=== PATIENT | female | born 1975 | race African-American/Black ===

== ENCOUNTER → 2016-12-29 | Emergency (ER) | payer OTHER ==
[~2016-12-29] VITALS: Ht 165.1 cm; Wt 54.4 kg
[~2016-12-29] MED LIST: ACETAMINOPHEN500 M3 ORAL; AMOXICILLIN500 MG ORAL; BACTRIM DS TAB1 EAC1 ORAL; CEPHALEXIN500 MG ORAL; GENTAMICIN SULF15 G2 TOPIC; HYDROCODON-ACE1 EA15 ORAL; IBUPROFEN600 MG ORAL; METROGEL-VAGINA70 G1 VAGIN; NITROFURANTOIN100 M2 ORAL; NKM; NORCO 5-325 TA1 EACH ORAL; Norco 5mg/325mg tab ORAL ONE; TYLENOL325 MG ORAL; vitamin
--- NOTE | 2016-12-29 04:22 | Emergency Room Report ---
History of Present Illness General Chief Complaint: Toothache Source: Patient Present Illness HPI Is a 41-year-old female with no respiratory issue. She presents with chief complaint of right lower jaw pain secondary to dental pain. Onset for 2 days. Pain is 10 out of 10. No swelling. No drainage. Has no dentist. Allergies: Coded Allergies: No Known Allergies (Unverified , 02/01/13) Patient History Past Medical History: none, see triage record, old chart reviewed Past Surgical History: none Pertinent Family History: none Social History: Reports: drug use, smoking Last Menstrual Period: last month Now: No Immunizations: other Reviewed Nursing Documentation: PMH: Agreed, PSxH: Agreed Nursing Documentation-PMH Hx Cerebrovascular Accident: No - "BRAIN INJURY" Review of Systems Eye: Denies: blurred vision, eye pain ENT: Denies: ear pain, nose congestion, throat swelling Respiratory: Denies: cough, shortness of breath Cardiovascular: Denies: chest pain, palpitations Gastrointestinal: Denies: abdominal pain, diarrhea, nausea, vomiting Musculoskeletal: Denies: back pain, joint pain Skin: Denies: rash Neurological: Denies: headache, numbness Endocrine: Denies: increased thirst, increased urine Hematologic/Lymphatic: Denies: easy bruising All Other Systems: negative except mentioned in HPI Physical Exam Vital Signs Date Time Temp Pulse Resp B/P Pulse Ox O2 Delivery O2 Flow Rate FiO2 12/29/16 04:06 98.2 96 18 131/76 97 Room Air vitals normal Sp02 EP Interpretation: reviewed, normal General Appearance: well appearing, no apparent distress, alert Head: normocephalic, atraumatic Eyes: bilateral eye EOMI, bilateral eye PERRL ENT: hearing grossly normal, normal pharynx, other - Patient has percussive tenderness over the right lower wisdom tooth. No abscess. No trismus. Neck: full range of motion, supple, no meningismus Respiratory: chest non-tender, lungs clear, normal breath sounds Cardiovascular #1: regular rate, rhythm, no murmur Gastrointestinal: normal bowel sounds, non tender, no mass, no organomegaly, no bruit, non-distended Musculoskeletal: back normal, gait/station normal, normal range of motion Psychiatric: mood/affect normal Skin: warm/dry Procedures Additional Procedure Procedure Narrative Procedure: Dental block. Indication: Dental pain. Discussion: I injected the tooth with 1% lidocaine without epinephrine. A total of 3 mL injected using 27-gauge needle. Patient tolerated procedure without any problem. Patient has good pain control. Medical Decision Making Diagnostic Impression: Primary Impression: Dental abscess ER Course Patient with toothache. Most likely infection. No abscess to I&D. We'll discharge home. Last Vital Signs Date Time Temp Pulse Resp B/P Pulse Ox O2 Delivery O2 Flow Rate FiO2 12/29/16 04:06 98.2 96 18 131/76 97 Room Air Status: improved Disposition: HOME, SELF-CARE Condition: Stable Scripts Hydrocodone/Acetaminophen 5-325* (HYDROCODONE/ACETAMINOPHEN 5-325*) 1 Each Tablet 1 TAB ORAL Q6H Y for For Pain, #15 TAB 0 Refills Prov: TERESITA BARDALES M.D. 12/29/16 Amoxicillin* (AMOXIL*) 500 Mg Capsule 500 MG ORAL THREE TIMES A DAY, #21 CAP Prov: TERESITA BARDALES M.D. 12/29/16 Patient Instructions: Dental Pain Additional Instructions: See dentist FEST[facility]. Return for fever, facial swelling or any concern. TERESITA BARDALES M.D. Dec 29, 2016 04:22
[2016-12-29 04:24] VITALS: BP 131/76
[2016-12-29 04:30] VITALS: BP 131/76
== END | disposition home or self-care (01) ==
LOC: EMR 04:15
DX: K04.7 Periapical abscess without sinus (principal); F17.200 Nicotine dependence, unspecified, uncomplicated
CPT/HCPCS: 99284

== ENCOUNTER 2017-01-20 10:59 | Emergency (ER) | payer MEDICAID, OTHER ==
[~2017-01-20] VITALS: Ht 165.1 cm; Wt 54.4 kg
[~2017-01-20 10:59] MED LIST changes: -METROGEL-VAGINA70 G1 VAGIN; -Norco 5mg/325mg tab ORAL ONE
[2017-01-20 11:24] VITALS: BP 125/80
[2017-01-20 12:16] LABS: APPEARANCE,URINE CLEAR; KETONES,URINE NEGATIVE (NEGATIVE); LEUKOCYTE ESTERASE ,URINE NEGATIVE (NEGATIVE); NITRITE,URINE NEGATIVE (NEGATIVE); PH,URINE 6 (4.5-8.0); PROTEIN,URINE NEGATIVE (NEGATIVE); UROBILINOGEN,URINE NORMAL MG/DL (0.0-1.0)
[2017-01-20] MEDS ORDERED: METROGEL-VAGINA70 G1 VAGIN (13:10)
[2017-01-20 13:19] VITALS: BP 119/76
--- NOTE | 2017-01-21 17:06 | Emergency Room Report ---
History of Present Illness General Chief Complaint: Abdominal Pain Source: Patient Present Illness HPI Patient is a 41-year-old female who presented after having had generalized abdominal pain. Patient had gradual onset of symptoms. The patient was noted to have been having increased discharge and rash to her perineal area. Patient denied any fever. She had not been vomiting. Patient has not been having any hematemesis or bloody stools Allergies: Coded Allergies: No Known Allergies (Unverified , 02/01/13) Patient History Last Menstrual Period: 11/29/16 Now: No Reviewed Nursing Documentation: PMH: Agreed, PSxH: Agreed Nursing Documentation-PMH Past Medical History: No Stated History Hx Cerebrovascular Accident: No - "BRAIN INJURY" Review of Systems All Other Systems: negative except mentioned in HPI Physical Exam Vital Signs Date Time Temp Pulse Resp B/P Pulse Ox O2 Delivery O2 Flow Rate FiO2 01/20/17 11:12 98.4 93 18 125/80 96 Room Air Sp02 EP Interpretation: reviewed, normal General Appearance: normal inspection, well appearing, no apparent distress, alert, GCS 15 Head: atraumatic ENT: normal ENT inspection, hearing grossly normal, normal voice Neck: normal inspection, full range of motion, supple, no bony tend Respiratory: normal inspection, lungs clear, normal breath sounds, no respiratory distress, no retraction, no wheezing Cardiovascular #1: regular rate, rhythm, no edema Gastrointestinal: normal inspection, normal bowel sounds, non tender, soft, no guarding, no hernia Genitourinary: no CVA tenderness, other - vaginal discharge Musculoskeletal: normal inspection, back normal, normal range of motion Neurologic: normal inspection, alert, responsive, speech normal Psychiatric: normal inspection, judgement/insight normal, mood/affect normal Skin: normal inspection, normal color, no rash Medical Decision Making Diagnostic Impression: Primary Impression: Abdominal pain Additional Impression: Vaginitis ER Course Patient presented for abdominal pain. Differential diagnoses included ischemic bowel, appendicitis, perforated viscus, abdominal aortic aneurysm, inferior myocardial infarction, viral gastroenteritis Patient's benign exam and does not appear to require any further imaging or laboratory testing at this time. The patient was given prescription for MetroGel for appears to be a vaginitis . The patient is advised to follow up with primary care doctor in 1-2 days. Patient is advised to return if any worsening condition or if any changes in status that are concerning. Labs Test 01/20/17 11:40 Urine Color Pale yellow Urine Appearance Clear Urine pH 6 (4.5-8.0) Urine Specific [place] 1.010 (1.005-1.035) Urine Protein Negative (NEGATIVE) Urine Glucose (UA) Negative (NEGATIVE) Urine Ketones Negative (NEGATIVE) Urine Occult Blood Negative (NEGATIVE) Urine Nitrite Negative (NEGATIVE) Urine Bilirubin Negative (NEGATIVE) Urine Urobilinogen Normal MG/DL (0.0-1.0) Urine Leukocyte Esterase Negative (NEGATIVE) Urine HCG, Qualitative Negative Last Vital Signs Date Time Temp Pulse Resp B/P Pulse Ox O2 Delivery O2 Flow Rate FiO2 01/20/17 13:19 98.4 86 18 119/76 99 Room Air Status: improved Disposition: HOME, SELF-CARE Condition: Stable Scripts Metronidazole* (METROGEL-VAGINAL*) 70 Gm Gel.w.appl 1 APPL VAGIN EVERY 12 HOURS, #70 GM Prov: Giovanny Monte 01/20/17 Patient Instructions: Abdominal Pain, Adult Giovanny Monte Jan 21, 2017 17:06
== END 2017-01-20 13:29 | disposition home or self-care (01) ==
LOC: EMR 12:00
DX: R10.9 Unspecified abdominal pain (principal); N76.0 Acute vaginitis
CPT/HCPCS: 81003; 81025; 99283

== ENCOUNTER 2017-06-29 20:39 | Emergency (ER) | payer OTHER ==
[~2017-06-29] VITALS: Ht 165.1 cm; Wt 54.4 kg
[~2017-06-29 20:39] MED LIST changes: +METROGEL-VAGINA70 G1 VAGIN
[2017-06-29 21:15] VITALS: BP 133/85
[2017-06-29] MEDS ORDERED: HYDROCODON-ACE1 EA15 ORAL (21:31)
[2017-06-29] MEDS ORDERED: AMOXICILLIN500 MG ORAL (21:31)
[2017-06-29] MEDS ORDERED: IBUPROFEN600 MG ORAL (21:31)
--- NOTE | 2017-06-29 21:31 | Emergency Room Report ---
History of Present Illness General Chief Complaint: Toothache Source: Patient Present Illness HPI Is a 41-year-old female with no significant past medical history. She presents with chief complaint of dental pain. She has poor dentition and said that her wisdom teeth broke off. Now complaining of pain to the right lower jaw. Onset for last week. She said she saw a dentist and has an appointment with a specialist in a week. No nausea no vomiting. Pain is 8/10. Has not take anything for this. No swelling. She's been here for similar complaint in the past. Allergies: Coded Allergies: No Known Allergies (Unverified , 02/01/13) Patient History Past Medical History: see triage record, old chart reviewed Past Surgical History: none Pertinent Family History: none Social History: Reports: smoking Last Menstrual Period: LAST WEEK Now: No Immunizations: other Reviewed Nursing Documentation: PMH: Agreed, PSxH: Agreed Nursing Documentation-PMH Past Medical History: No Stated History Hx Cerebrovascular Accident: No - "BRAIN INJURY" Review of Systems Eye: Denies: eye pain, blurred vision ENT: Denies: ear pain, nose congestion, throat swelling Respiratory: Denies: cough, shortness of breath Cardiovascular: Denies: chest pain, palpitations Gastrointestinal: Denies: abdominal pain, diarrhea, nausea, vomiting Musculoskeletal: Denies: back pain, joint pain Skin: Denies: rash Neurological: Denies: headache, numbness Endocrine: Denies: increased thirst, increased urine Hematologic/Lymphatic: Denies: easy bruising All Other Systems: negative except mentioned in HPI Physical Exam Vital Signs Date Time Temp Pulse Resp B/P (MAP) Pulse Ox O2 Delivery O2 Flow Rate FiO2 06/29/17 21:08 97.5 80 20 133/85 98 Room Air vitals unremark Sp02 EP Interpretation: reviewed, normal General Appearance: well appearing, no apparent distress, alert Head: normocephalic, atraumatic Eyes: bilateral eye PERRL, bilateral eye EOMI ENT: hearing grossly normal, normal pharynx, other - Poor dentition. Right lower jaw showed decay of 2nd and 3rd molars. Neck: full range of motion, supple, no meningismus Respiratory: chest non-tender, lungs clear, normal breath sounds Cardiovascular #1: regular rate, rhythm, no murmur Gastrointestinal: normal bowel sounds, non tender, no mass, no organomegaly, no bruit, non-distended Musculoskeletal: back normal, gait/station normal, normal range of motion Psychiatric: mood/affect normal Skin: warm/dry Medical Decision Making Diagnostic Impression: Primary Impression: Toothache Additional Impression: Dental abscess ER Course Pt with dental pain. no e/o abscess that can be I&D. will dc home. Last Vital Signs Date Time Temp Pulse Resp B/P (MAP) Pulse Ox O2 Delivery O2 Flow Rate FiO2 06/29/17 21:15 20 133/85 98 Room Air 06/29/17 21:08 97.5 80 Status: improved Disposition: HOME, SELF-CARE Condition: Stable Scripts Ibuprofen* (MOTRIN*) 600 Mg Tablet 600 MG ORAL THREE TIMES A DAY, #30 TAB 0 Refills Prov: TERESITA BARDALES M.D. 06/29/17 Hydrocodone/Acetaminophen 5-325* (HYDROCODONE/ACETAMINOPHEN 5-325*) 1 Each Tablet 1 TAB ORAL Q6H Y for For Pain, #5 TAB 0 Refills Prov: TERESITA BARDALES M.D. 06/29/17 Amoxicillin* (AMOXIL*) 500 Mg Capsule 500 MG ORAL THREE TIMES A DAY, #21 CAP Prov: TERESITA BARDALES M.D. 06/29/17 Referrals: [facility],REFERR[facility] (PCP) Patient Instructions: Dental Pain Additional Instructions: Followup with your dentist as scheduled. Return if symptom worsen. TERESITA BARDALES M.D. Jun 29, 2017 21:31
[2017-06-29 21:55] VITALS: BP 128/81
== END 2017-06-29 21:57 | disposition home or self-care (01) ==
LOC: EMR 21:11
DX: K04.7 Periapical abscess without sinus (principal); F17.200 Nicotine dependence, unspecified, uncomplicated
CPT/HCPCS: 99284

== ENCOUNTER 2017-08-20 20:37 | Emergency (ER) | payer OTHER ==
[~2017-08-20] VITALS: Ht 165.1 cm; Wt 54.4 kg
[2017-08-20 20:50] VITALS: BP 118/78
[2017-08-20] MEDS ORDERED: PERCOCET 5-3251 EACH ORAL (21:35)
[2017-08-20 21:46] VITALS: BP 118/78
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
== END 2017-08-20 21:50 | disposition home or self-care (01) ==
LOC: EMR 21:48
DX: M25.551 Pain in right hip (principal); V89.2XXA Person injured in unspecified motor-vehicle accident, traffic, initial encounter; Y93.9 Activity, unspecified; Y99.9 Unspecified external cause status
CPT/HCPCS: 99283

== ENCOUNTER 2018-02-25 23:29 | Emergency (ER) | payer OTHER ==
[~2018-02-25 23:29] MED LIST changes: +PERCOCET 5-3251 EACH ORAL
--- NOTE | 2018-02-25 23:58 | Emergency Room Report ---
History of Present Illness General Chief Complaint: To Be Triaged Present Illness HPI This a 42-year-old female with history of chronic pain. She presents with chief complaint of back pain. When she was called back by triage nurse, she never showed up. Patient left without being triaged. I did not see the patient. Allergies: Coded Allergies: No Known Allergies (Unverified , 02/01/13) Nursing Documentation-PMH Hx Cerebrovascular Accident: No - "BRAIN INJURY" Medical Decision Making Diagnostic Impression: Primary Impression: Back pain Status: unchanged Disposition: LEFT W/OUT BEING SEEN TERESITA BARDALES M.D. February 25, 2018 23:58
== END 2018-02-25 23:54 | disposition left against medical advice (07) ==
LOC: EMR 23:54
DX: M54.9 Dorsalgia, unspecified (principal); Z53.21 Procedure and treatment not carried out due to patient leaving prior to being seen by health care provider
CPT/HCPCS: 99281

== ENCOUNTER → 2018-02-27 | Emergency (ER) | payer OTHER ==
[~2018-02-27] VITALS: Ht 165.1 cm; Wt 59.0 kg
[2018-02-27 13:24] VITALS: BP 138/97
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
== END | disposition left against medical advice (07) ==
LOC: EMR 13:45
DX: H57.11 Ocular pain, right eye (principal); Z53.21 Procedure and treatment not carried out due to patient leaving prior to being seen by health care provider
CPT/HCPCS: 99281

== ENCOUNTER 2018-03-02 23:33 | Emergency (ER) | payer OTHER ==
[~2018-03-02] VITALS: Ht 165.1 cm; Wt 56.7 kg
[2018-03-03] MEDS ORDERED: Tylenol #3 tab (300mg/30mg) PO ONE
[2018-03-03 00:20] VITALS: BP 128/78
[2018-03-03 01:30] VITALS: BP 128/90
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
== END 2018-03-03 00:35 | disposition left against medical advice (07) ==
LOC: EMR 23:53
DX: S00.83XA Contusion of other part of head, initial encounter (principal); Y04.2XXA Assault by strike against or bumped into by another person, initial encounter; Y92.9 Unspecified place or not applicable
CPT/HCPCS: 99282

== ENCOUNTER 2018-03-08 22:37 | Emergency (ER) | payer OTHER ==
[~2018-03-08] VITALS: Ht 165.1 cm; Wt 54.4 kg
[2018-03-08 23:28] VITALS: BP 127/86
[2018-03-08] MEDS ORDERED: BACTRIM DS TAB1 EAC1 ORAL (23:33)
[2018-03-08] MEDS ORDERED: CEPHALEXIN500 MG ORAL (23:33)
[2018-03-08 23:50] VITALS: BP 0/0
--- NOTE | 2018-03-09 02:50 | Emergency Room Report ---
History of Present Illness General Chief Complaint: Skin Rash/Abscess Source: Patient Present Illness HPI Patient presents with complaints of boil to the right buttock area She has felt that area for the past 7 days Denies any fevers or chills Denies any discharge Has some mild discomfort when sitting Denies any trauma Denies any discomfort with bowel movement Allergies: Coded Allergies: No Known Allergies (Unverified , 02/01/13) Patient History Past Medical History: see triage record Pertinent Family History: none Last Menstrual Period: 02/07/2018 Now: No Reviewed Nursing Documentation: PMH: Agreed; PSxH: Agreed Nursing Documentation-PMH Past Medical History: No Stated History Hx Cerebrovascular Accident: No Review of Systems All Other Systems: negative except mentioned in HPI Physical Exam Vital Signs Date Time Temp Pulse Resp B/P (MAP) Pulse Ox O2 Delivery O2 Flow Rate FiO2 03/08/18 23:16 98.2 92 16 127/86 97 Room Air 98.2 Sp02 EP Interpretation: reviewed, normal General Appearance: well appearing, no apparent distress Head: normocephalic, atraumatic Eyes: bilateral eye PERRL, bilateral eye EOMI ENT: hearing grossly normal, normal pharynx Neck: full range of motion, supple Respiratory: lungs clear, normal breath sounds Cardiovascular #1: regular rate, rhythm Rectal: other - Small pustule to the right lower buttock region, no obvious fluctuance, mild erythema Musculoskeletal: normal inspection Neurologic: alert, oriented x3 Skin: other - As above Lymphatic: no adenopathy Medical Decision Making Diagnostic Impression: Primary Impression: cellulitis Additional Impression: pustule ER Course There is a small area of infection on the right buttock area No areas for incision at this time patient will be trialed on oral antibiotics Warm soaking And return with any changes Last Vital Signs Date Time Temp Pulse Resp B/P (MAP) Pulse Ox O2 Delivery O2 Flow Rate FiO2 03/08/18 23:16 98.2 92 16 127/86 97 Room Air 98.2 Status: unchanged Disposition: HOME, SELF-CARE Condition: Stable Scripts Trimethoprim/Sulfamethoxazole 160/800* (BACTRIM DS TABLET*) 1 Each Tablet 1 TAB ORAL Q12H, #20 TAB 0 Refills Prov: Akash Soni DO 03/08/18 Cephalexin* (KEFLEX*) 500 Mg Capsule 500 MG ORAL EVERY 6 HOURS, #40 CAP Prov: Akash Soni DO 03/08/18 Referrals: [facility],REFERR[facility] (PCP) Patient Instructions: Abscess, Cellulitis, [id number] Additional Instructions: Patient is provided with the discharge instructions notified to follow up with primary doctor in the next 2-3 days otherwise return to the er with any worsening symptoms. Please note that this report is being documented using [employer] technology. This can lead to erroneous entry secondary to incorrect interpretation by the dictating instrument. Akash Soni DO March 09, 2018 02:50
== END 2018-03-08 23:50 | disposition home or self-care (01) ==
LOC: EMR 23:06
DX: L03.317 Cellulitis of buttock (principal)
CPT/HCPCS: 99284

== ENCOUNTER 2018-04-06 00:22 | Emergency (ER) | payer OTHER ==
[~2018-04-06] VITALS: Ht 165.1 cm; Wt 54.4 kg
[2018-04-06 01:34] VITALS: BP 134/86
[2018-04-06] MEDS ORDERED: IBUPROFEN600 MG ORAL (01:36)
[2018-04-06] MEDS ORDERED: OCUFLOX5 ML RIGHT EYE (01:36)
[2018-04-06] MEDS ORDERED: ROBAXIN-750750 MG PO (01:36)
[2018-04-06 01:41] VITALS: BP 134/86
--- NOTE | 2018-04-06 06:06 | Emergency Room Report ---
History of Present Illness General Chief Complaint: Pain Source: Patient Present Illness HPI 42-year-old female presents ED complaining of right eye pain. Started 2 days ago after she fell. States her eye may been irritated in the process. Also complaining of some right lower back pain. Pain is dull, 8 out of 10, nonradiating. Denies photophobia or blurry vision. Denies any other injuries. No other aggravating relieving factors. Denies any other associated symptoms Allergies: Coded Allergies: No Known Allergies (Unverified , 02/01/13) Patient History Past Medical History: none Past Surgical History: none Pertinent Family History: none Social History: Denies: smoking, alcohol use, drug use Last Menstrual Period: February 26 Now: No Immunizations: UTD Reviewed Nursing Documentation: PMH: Agreed; PSxH: Agreed Nursing Documentation-PMH Past Medical History: No Stated History Hx Cerebrovascular Accident: No Review of Systems All Other Systems: negative except mentioned in HPI Physical Exam Vital Signs Date Time Temp Pulse Resp B/P (MAP) Pulse Ox O2 Delivery O2 Flow Rate FiO2 04/06/18 00:30 98.3 83 18 134/86 98 Room Air 98.2 Sp02 EP Interpretation: reviewed, normal General Appearance: no apparent distress, alert, GCS 15, non-toxic Head: normocephalic, atraumatic Eyes: right eye Scleral Injection; left eye normal inspection; bilateral eye PERRL ENT: hearing grossly normal, normal pharynx, no angioedema, normal voice Neck: full range of motion, supple/symm/no masses Respiratory: chest non-tender, lungs clear, normal breath sounds, speaking full sentences Cardiovascular #1: regular rate, rhythm, no edema Cardiovascular #2: 2+ carotid (R), 2+ carotid (L), 2+ radial (R), 2+ radial (L) , 2+ dorsalis pedis (R), 2+ dorsalis pedis (L) Gastrointestinal: normal bowel sounds, non tender, soft, non-distended, no guarding, no rebound Rectal: deferred Genitourinary: normal inspection, no CVA tenderness Musculoskeletal: gait/station normal, normal range of motion, non-tender, tender - parapsinal lumbar tenderness Neurologic: alert, oriented x3, responsive, motor strength/tone normal, sensory intact, speech normal Psychiatric: judgement/insight normal, memory normal, mood/affect normal, no suicidal/homicidal ideation Reflexes: 3+ bicep (R), 3+ bicep (L), 3+ tricep (R), 3+ tricep (L), 3+ knee (R) , 3+ knee (L) Skin: normal color, no rash, warm/dry, well hydrated Lymphatic: no adenopathy Medical Decision Making Diagnostic Impression: Primary Impression: Acute bacterial conjunctivitis Qualified Codes: H10.31 - Unspecified acute conjunctivitis, right eye Additional Impression: Back pain Qualified Codes: M54.5 - Low back pain ER Course Hospital Course 42-year-old F presents to ED with R eye redness, back pain s/p fall Differential diagnoses include: conjunctivitis, traumatic iritis, foreign body, corneal abrasion Clinical course Patient placed on stretcher. After initial history, physical exam revealed a middle-aged female no acute distress. There is injected conjunctiva R eyes. Pupils equally reactive to light bilaterally. No evidence of foreign body. Clinical findings consistent with conjunctivitis. There is no vertebral body tenderness. Pain is paraspinal. Patient is safe for discharge Diagnosis - conjunctivitis, back pain Stable and discharged to home with prescription for Ocuflox, Motrin, Robaxin. Followup with PMD/Optho. Return to ED if symptoms recur or worsen Last Vital Signs Date Time Temp Pulse Resp B/P (MAP) Pulse Ox O2 Delivery O2 Flow Rate FiO2 04/06/18 01:41 98.2 83 18 134/86 98 Room Air 98.2 Status: improved Disposition: HOME, SELF-CARE Condition: Stable Scripts Methocarbamol* (ROBAXIN-750*) 750 Mg Tablet 750 MG PO TID, #21 TAB 0 Refills Prov: Drew Viramontes MD 04/06/18 Ibuprofen* (MOTRIN*) 600 Mg Tablet 600 MG ORAL Q8H PRN for For Pain, #30 TAB 0 Refills Prov: Drew Viramontes MD 04/06/18 Ofloxacin (OCUFLOX) 5 Ml Drops 1 DROP RIGHT EYE QID for 7 Days, ML Prov: Drew Viramontes MD 04/06/18 Referrals: [facility],REFERRING (PCP) Patient Instructions: Bacterial Conjunctivitis, [id number] Drew Viramontes MD Apr 06, 2018 06:06
== END 2018-04-06 01:40 | disposition home or self-care (01) ==
LOC: EMR 01:00
DX: H10.31 Unspecified acute conjunctivitis, right eye (principal); B96.89 Other specified bacterial agents as the cause of diseases classified elsewhere
CPT/HCPCS: 99284

== ENCOUNTER 2018-06-22 23:27 | Emergency (ER) | payer OTHER ==
[~2018-06-22] VITALS: Ht 165.1 cm; Wt 54.4 kg
[~2018-06-22 23:27] MED LIST changes: +OCUFLOX5 ML RIGHT EYE; +ROBAXIN-750750 MG PO
[2018-06-23] MEDS ORDERED: IBUPROFEN600 MG ORAL (00:19)
[2018-06-23 00:45] VITALS: BP 134/81
[2018-06-23 00:47] VITALS: BP 134/81
--- NOTE | 2018-06-23 02:13 | Emergency Room Report ---
History of Present Illness General Chief Complaint: Pain Source: Patient Present Illness HPI 42-year-old female presents ED for evaluation. Patient complaining of pain to her left hand and left foot times one week. States they are swollen. Denies any recent injury. Pain is dull, 7 out of 10, nonradiating. Denies any fevers chills. No other aggravating relieving factors. Denies any other associated symptoms Allergies: Coded Allergies: No Known Allergies (Unverified , 02/01/13) Patient History Past Medical History: psych hx Past Surgical History: none Pertinent Family History: none Social History: Denies: smoking, alcohol use, drug use Last Menstrual Period: april Now: No Immunizations: UTD Reviewed Nursing Documentation: PMH: Agreed; PSxH: Agreed Nursing Documentation-PMH History Of Psychiatric Problem: Yes Hx Cerebrovascular Accident: No Review of Systems All Other Systems: negative except mentioned in HPI Physical Exam Vital Signs Date Time Temp Pulse Resp B/P (MAP) Pulse Ox O2 Delivery O2 Flow Rate FiO2 06/22/18 23:42 98.1 75 16 134/84 98 Room Air 98.1 Sp02 EP Interpretation: reviewed, normal General Appearance: no apparent distress, alert, GCS 15, non-toxic Head: normocephalic, atraumatic Eyes: bilateral eye normal inspection, bilateral eye PERRL ENT: hearing grossly normal, normal pharynx, no angioedema, normal voice Neck: full range of motion, supple/symm/no masses Respiratory: chest non-tender, lungs clear, normal breath sounds, speaking full sentences Cardiovascular #1: regular rate, rhythm, no edema Cardiovascular #2: 2+ carotid (R), 2+ carotid (L), 2+ radial (R), 2+ radial (L) , 2+ dorsalis pedis (R), 2+ dorsalis pedis (L) Gastrointestinal: normal bowel sounds, non tender, soft, non-distended, no guarding, no rebound Rectal: deferred Genitourinary: normal inspection, no CVA tenderness Musculoskeletal: back normal, gait/station normal, normal range of motion, non- tender Neurologic: alert, oriented x3, responsive, motor strength/tone normal, sensory intact, speech normal Psychiatric: judgement/insight normal, memory normal, mood/affect normal, no suicidal/homicidal ideation Reflexes: 3+ bicep (R), 3+ bicep (L), 3+ tricep (R), 3+ tricep (L), 3+ knee (R) , 3+ knee (L) Skin: normal color, no rash, warm/dry, well hydrated Lymphatic: no adenopathy Medical Decision Making Diagnostic Impression: Primary Impression: Arthritis ER Course Hospital Course 42-year-old female presents to ED complaining of left hand/foot pain and swelling no trauma Differential diagnoses include: Fracture, dislocation, sprain, contusion, bursitis Clinical course Patient placed on stretcher. After initial history, physical exam reveals an middle-aged female in no acute distress. On exam there is no evidence of swelling in the left hand or left foot. I compared the hands and feet to the right side and there is no difference. There is no bony tenderness. No crepitus. No deformity. No signs of induration or erythema. I believe her pain is consistent with arthropathy. Discussed findings with patient. Recommend NSAIDs, ice, rest. She is safe for discharge and close outpatient follow-up. Diagnosis - arthritis stable and discharged to home with prescription for Motrin. apply ice. elevate. Followup with PMD. Return to ED if symptoms recur or worsen Last Vital Signs Date Time Temp Pulse Resp B/P (MAP) Pulse Ox O2 Delivery O2 Flow Rate FiO2 06/23/18 00:47 98.1 75 16 134/81 98 Room Air Status: improved Disposition: HOME, SELF-CARE Condition: Stable Scripts Ibuprofen* (MOTRIN*) 600 Mg Tablet 600 MG ORAL Q8H PRN for For Pain, #30 TAB 0 Refills Prov: Drew Viramontes MD 06/23/18 Patient Instructions: Arthritis, [id number] Drew Viramontes MD Jun 23, 2018 02:13
== END 2018-06-23 00:49 | disposition home or self-care (01) ==
LOC: EMR 23:59
DX: M19.042 Primary osteoarthritis, left hand (principal); M19.072 Primary osteoarthritis, left ankle and foot
CPT/HCPCS: 99282

== ENCOUNTER 2018-08-30 23:30 | Emergency (ER) | payer OTHER ==
[~2018-08-30] VITALS: Ht 165.1 cm; Wt 54.4 kg
[2018-08-30 23:50] VITALS: BP 145/86
--- NOTE | 2018-08-30 23:58 | Emergency Room Report ---
History of Present Illness General Chief Complaint: Abdominal Pain Source: Patient Present Illness HPI Is a 43-year-old female with no past medical history. She presents with chief complaint abdominal pain. Onset for last 2 weeks. Pain is diffuse in nature. 8 out of 10. Sharp in nature. Worse when she lay on her side. Also with diarrhea. No vomiting. She's been here for similar complaint in the past. No nausea no vomiting. No fever or chills. No radiation. No urinary complaint. Allergies: Coded Allergies: No Known Allergies (Unverified , 02/01/13) Patient History Past Medical History: none, see triage record, old chart reviewed Past Surgical History: none Pertinent Family History: none Social History: Denies: smoking Last Menstrual Period: 4 weeks ago Now: No Immunizations: other Reviewed Nursing Documentation: PMH: Agreed; PSxH: Agreed Nursing Documentation-PMH Past Medical History: No Stated History Hx Cerebrovascular Accident: No Review of Systems Eye: Denies: eye pain, blurred vision ENT: Denies: ear pain, nose congestion, throat swelling Respiratory: Denies: cough, shortness of breath Cardiovascular: Denies: chest pain, palpitations Gastrointestinal: Reports: abdominal pain, diarrhea; Denies: nausea, vomiting Musculoskeletal: Denies: back pain, joint pain Skin: Denies: rash Neurological: Denies: headache, numbness Endocrine: Denies: increased thirst, increased urine Hematologic/Lymphatic: Denies: easy bruising All Other Systems: negative except mentioned in HPI Physical Exam Vital Signs Date Time Temp Pulse Resp B/P (MAP) Pulse Ox O2 Delivery O2 Flow Rate FiO2 08/30/18 23:40 98.2 95 18 95 Room Air was normal Sp02 EP Interpretation: reviewed, normal General Appearance: well appearing, no apparent distress, alert Head: normocephalic, atraumatic Eyes: bilateral eye PERRL, bilateral eye EOMI ENT: hearing grossly normal, normal pharynx Neck: full range of motion, supple, no meningismus Respiratory: chest non-tender, lungs clear, normal breath sounds Cardiovascular #1: regular rate, rhythm, no murmur Gastrointestinal: non tender, no mass, no organomegaly, no bruit, non-distended , abnormal bowel sounds - Hyperactive bowel sounds Musculoskeletal: back normal, gait/station normal, normal range of motion Psychiatric: mood/affect normal Skin: warm/dry Medical Decision Making Diagnostic Impression: Primary Impression: Abdominal pain Qualified Codes: R10.84 - Generalized abdominal pain Additional Impressions: Cocaine abuse Constipation Qualified Codes: K59.00 - Constipation, unspecified ER Course Patient with abdominal pain. No acute abdomen. No obstruction. Patient is eating without any problem. She said she can't lie on her left side that she's laying on the left side. Discharge home. CT/MRI/US Diagnostic Results CT/MRI/US Diagnostic Results : Imaging Test Ordered: CT scan abdomen and pelvis Impression Read by radiologist. Stool and gas throughout the colon. No appendicitis. Last Vital Signs Date Time Temp Pulse Resp B/P (MAP) Pulse Ox O2 Delivery O2 Flow Rate FiO2 08/30/18 23:40 98.2 95 18 95 Room Air Status: improved Disposition: HOME, SELF-CARE Condition: Stable Scripts Lactulose (LACTULOSE*) 20 Gm/30 Ml Solution 30 ML ORAL DAILY, #120 ML 0 Refills Prov: Sanju Sullivan MD 08/31/18 Referrals: [facility],REFERRING (PCP) Additional Instructions: Stop using drugs. Follow-up your doctor in 7 days. Return if worse. Increase fiber and fluids. Sanju Sullivan MD Aug 30, 2018 23:58
[2018-08-31 00:16] LABS: BILIRUBIN, URINE NEGATIVE (NEGATIVE); COLOR,URINE PALE YELLOW; GLUCOSE, URINE (UA) NEGATIVE (NEGATIVE); KETONES,URINE NEGATIVE (NEGATIVE); NITRITE,URINE NEGATIVE (NEGATIVE); PH,URINE 6.5 (4.5-8.0); PROTEIN,URINE 1+ (NEGATIVE); UROBILINOGEN,URINE NORMAL MG/DL (0.0-1.0)
[2018-08-31 00:23] LABS: APPEARANCE,URINE CLEAR; LEUKOCYTE ESTERASE ,URINE 1+ (NEGATIVE)
[2018-08-31] MEDS ORDERED: LACTULOSE20 GM/301 ORAL (01:24)
[2018-08-31 01:35] VITALS: BP 145/86
--- NOTE | 2018-08-31 09:17 | Diagnostic Imaging Report ---
Indication: Abdominal pain Technique: Continuous helical transaxial imaging of the abdomen and pelvis was obtained from the lung bases to the pubic symphysis. No intravenous contrast was administered. Coronal 2-D reformats were also obtained. Automatic Exposure Control was utilized. Total Dose length Product (DLP): 506.[address] Dose Index Volume (CTDIvol): 10.55 mGy Comparison: 03/30/2016 Findings: Limitation on this study due to the nonadministration of IV and oral contrast. Mild basal reticulation consistent with atelectasis demonstrated. No nephrolithiasis or hydronephrosis appreciated. Gallbladder is grossly unremarkable. No obvious free fluid or free air identified. The uterus is noted. The appendix is normal. No obvious evidence for bowel obstruction. IMPRESSION: Limited evaluation. No acute findings. [facility] has communicated the preliminary results to the Emergency Department. Their findings are largely concordant with this report. The CT scanner at [facility] is accredited by the [employer] and the scans are performed using dose optimization techniques as appropriate to a performed exam including Automatic Exposure control.
== END 2018-08-31 01:35 | disposition home or self-care (01) ==
LOC: EMR 23:51
DX: R10.84 Generalized abdominal pain (principal); K59.00 Constipation, unspecified; R19.7 Diarrhea, unspecified; F14.10 Cocaine abuse, uncomplicated; F17.200 Nicotine dependence, unspecified, uncomplicated
CPT/HCPCS: 74176; 80307; 81003; 81025; 99284

== ENCOUNTER 2018-12-11 11:32 | Emergency (ER) | payer OTHER ==
[~2018-12-11] VITALS: Ht 165.1 cm; Wt 54.4 kg
[~2018-12-11 11:32] MED LIST changes: +LACTULOSE20 GM/301 ORAL
[2018-12-11] MEDS ORDERED: NKM (11:44)
[2018-12-11 11:48] VITALS: BP 122/74
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
[2018-12-11] MEDS ORDERED: Bacitracin Oint UD TOPIC ONE (12:15)
[2018-12-11] MEDS ORDERED: BACTRIM DS TAB1 EAC1 ORAL (12:17)
[2018-12-11] MEDS ORDERED: CEPHALEXIN500 MG ORAL (12:17)
[2018-12-11] MEDS ORDERED: BACITRACIN15 GM TOPIC (12:17)
--- NOTE | 2018-12-11 12:28 | NUR ---
ED Nurse Note: LEATHA Smith irrigated right hand wound with NS. Patient tolerated the procedure without difficulty.
[2018-12-11 12:31] VITALS: BP 120/70
--- NOTE | 2018-12-11 12:32 | NUR ---
ED Nurse Note: PT SITTING PEACEFULLY IN BED IN NAD. AOX4. PRESCRIPTIONS AND DISCHARGE PAPERWORK EXPLAINED TO PT. PT VERBALIZES UNDERSTANDING AND ALL QUESTIONS ANSWERED. PRESCRIPTIONS AND DISCHARGE PAPERWORK GIVEN TO PT AND ID WRISTBAND REMOVED. PT WALKED OUT OF ER WITH STEADY GAIT AND ALL BELONGINGS.
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
== END 2018-12-11 12:32 | disposition home or self-care (01) ==
LOC: EMR 12:20
DX: S61.412A Laceration without foreign body of left hand, initial encounter (principal); L08.9 Local infection of the skin and subcutaneous tissue, unspecified; V18.0XXA Pedal cycle driver injured in noncollision transport accident in nontraffic accident, initial encounter; Y93.55 Activity, bike riding; Y92.9 Unspecified place or not applicable
CPT/HCPCS: 99282

== ENCOUNTER 2019-01-30 07:57 | Emergency (ER) | payer OTHER ==
[~2019-01-30] VITALS: Ht 165.1 cm; Wt 54.4 kg
[~2019-01-30 07:57] MED LIST changes: +BACITRACIN15 GM TOPIC
[2019-01-30 08:01] VITALS: BP 110/74
[2019-01-30] MEDS ORDERED: oxyCODONE HCL/Acetaminophen 5/325mg ORAL ONE (08:15)
--- NOTE | 2019-01-30 08:20 | NUR ---
ED Nurse Note: maynor wrap aplied on the R knee
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
[2019-01-30] MEDS ORDERED: TRAMADOL HCL50 MG ORAL (08:24)
[2019-01-30] MEDS ORDERED: ROBAXIN500 MG PO (08:24)
[2019-01-30] MEDS ORDERED: IBUPROFEN600 MG ORAL (08:24)
[2019-01-30 08:50] VITALS: BP 122/80
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
== END 2019-01-30 08:50 | disposition home or self-care (01) ==
LOC: EMR 08:10
DX: S80.01XA Contusion of right knee, initial encounter (principal); S39.012A Strain of muscle, fascia and tendon of lower back, initial encounter; S09.90XA Unspecified injury of head, initial encounter; V43.62XA Car passenger injured in collision with other type car in traffic accident, initial encounter; Y92.410 Unspecified street and highway as the place of occurrence of the external cause
CPT/HCPCS: 99282

== ENCOUNTER 2019-02-22 16:07 | Emergency (ER) | payer OTHER ==
[~2019-02-22] VITALS: Ht 165.1 cm; Wt 54.4 kg
[~2019-02-22 16:07] MED LIST changes: +ROBAXIN500 MG PO; +TRAMADOL HCL50 MG ORAL
[2019-02-22] MEDS ORDERED: HYDROcodone/Acetamin 5/325 tab ORAL ONE (16:45)
--- NOTE | 2019-02-22 17:10 | Diagnostic Imaging Report ---
Indication: Left toe pain Comparison: None Findings: 3 views of the left forefoot obtained. There is an apparent dislocation of the fifth proximal interphalangeal joint. Tiny bone chip noted lateral to the fifth metatarsal head. Correlate clinically. There is a hallux valgus deformity present with bunion noted. No acute fracture is identified. IMPRESSION: Lateral dislocation involving the fifth PIP joint, presumably acute
[2019-02-22] MEDS ORDERED: Lidocaine 1% MPF 10mg/ml 5ml IM ONE (17:15)
--- NOTE | 2019-02-22 17:26 | Emergency Room Report ---
History of Present Illness General Chief Complaint: Lower Extremity Injury Source: Patient (Nkechi Brown) Present Illness HPI 43 YO Female presents to the ED C/O 08/04 in severity constant pain that is localized to the left fifth toe after stubbing her toe on a coffee table last night. Patient reports some deformity but states that she is always had multiple deformities in her toes. Patient reports swelling, bruising and tenderness. Patient states that her pain is exacerbated upon palpation, ambulation or weightbearing. Patient denies relieving factors. Denies open wounds or bleeding. Denies numbness tingling or loss of sensation or gross motor movements of the extremity (Nkechi Brown) Allergies: Coded Allergies: No Known Allergies (Unverified , 12/11/18) Patient History Past Medical History: see triage record Past Surgical History: none Pertinent Family History: none Last Menstrual Period: 02/07/19 Now: No Reviewed Nursing Documentation: PMH: Agreed; PSxH: Agreed (Nkechi Brown) Nursing Documentation-PMH Past Medical History: No Stated History Hx Cerebrovascular Accident: No (Nkechi Brown) Review of Systems All Other Systems: negative except mentioned in HPI (Nkechi Brown) Physical Exam Vital Signs Date Time Temp Pulse Resp B/P (MAP) Pulse Ox O2 Delivery O2 Flow Rate FiO2 02/22/19 16:32 97.7 98 18 130/92 95 Room Air Sp02 EP Interpretation: reviewed, normal General Appearance: alert, GCS 15, non-toxic, mild distress Head: normocephalic, atraumatic Eyes: bilateral eye normal inspection, bilateral eye PERRL ENT: hearing grossly normal, normal voice Neck: full range of motion Respiratory: lungs clear, normal breath sounds, speaking full sentences Cardiovascular #1: regular rate, rhythm, normal capillary refill Musculoskeletal: back normal, gait/station normal - compensatory, favoring the left foot., normal range of motion, tender - left 5th toe, swelling and deformity noted. NVI Neurologic: alert, oriented x3, responsive, motor strength/tone normal, sensory intact, speech normal, grossly normal Psychiatric: judgement/insight normal Skin: normal color, no rash, warm/dry, well hydrated (Nkechi Brown) Procedures Joint Reduction Joint Reduction : Consent: Verbal Joint Reduction Site: other - left 5th toe Procedural Sedation: No Reduction Attempts: Other - 2 Pre-Procedure NV Exam: Yes Post Joint Reduction Film: joint not reduced Patient Tolerated: Poor Complications: None Progress digital block using 4cc of 1% lidocaine. (Nkechi Brown) Medical Decision Making PA Attestation Dr. Ernandez is my supervising Physician whom patient management has been discussed with. (Nkechi Brown) Diagnostic Impression: Primary Impression: Dislocation of toe of left foot Qualified Codes: S93.105A - Unspecified dislocation of left toe(s), initial encounter Additional Impression: Avulsion fracture ER Course 43 YO Female presents to the ED C/O 08/04 in severity constant pain that is localized to the left fifth toe after stubbing her toe on a coffee table last night. Patient reports some deformity but states that she is always had multiple deformities in her toes. Patient reports swelling, bruising and tenderness. Patient states that her pain is exacerbated upon palpation, ambulation or weightbearing. Patient denies relieving factors. Denies open wounds or bleeding. Denies numbness tingling or loss of sensation or gross motor movements of the extremity Ddx considered but are not limited to Fracture, dislocation, contusion, Sprain/ Strain/Spasm. Vital signs: are WNL, pt. is afebrile H&PE are most consistent with musculoskeletal injury will perform imaging to r/ o fractures/dislocations. ORDERS: - X-ray Left TOES 3 views - POSITIVE for dislocation and avulsion fx of the 5th toe ED INTERVENTIONS: - Bayard PO --Several attempts to align the toe were made, and were unsuccessful. --Pt. declined additional attempts to reduce the dislocated toe. The 5th and 4th left toes were ash taped applied by interventional radiology technologist. Pt. remains neurovascularly intact. -Patient is provided with hard sole cast shoe, and crutches. She was instructed on their use DISCHARGE: At this time pt. is stable for d/c to home. Will provide printed patient care instructions, and any necessary prescriptions. Care plan and follow up instructions have been discussed with the patient prior to discharge. (Nkechi Brown) ER Course I approached the patient and had to attempt to reduce the toe. She refuses to allow me to do so. Discussed the fact that her total never be proper if she does not allow this to happen. She still refuses. (Kenyon Ernandez MD) Other X-Ray Diagnostic Results Other X-Ray Diagnostic Results #1: X-Ray ordered: LEft toes # of Views/Limited Vs Complete: 3 View Indication: Pain EP Interpretation: Yes PA Xray: Interpretation reviewed, by supervising MD, and agrees with findings. Interpretation: other - Dislocation and avulsion fx of 5th toe Impression: Other - abnormal Electronically Signed by: Nkechi Brown PA-C Other X-Ray Diagnostic Results #2: X-Ray ordered: Left toes # of Views/Limited Vs Complete: 3 View Indication: Pain EP Interpretation: Yes PA Xray: Interpretation reviewed, by supervising MD, and agrees with findings. Interpretation: other - 5th toe still dislocated, avulsion fx still visible. Impression: Other - abnormal Electronically Signed by: Nkechi Brown PA-C (Nkechi Brown) Other X-Ray Diagnostic Results : Electronically Signed by: Electronically signed by Kenyon Ernandez MD (Kenyon Ernandez MD) Last Vital Signs Date Time Temp Pulse Resp B/P (MAP) Pulse Ox O2 Delivery O2 Flow Rate FiO2 02/22/19 16:32 97.7 98 18 130/92 95 Room Air (Nkechi Brown) Disposition: HOME, SELF-CARE Condition: Stable Scripts Ibuprofen* (MOTRIN*) 600 Mg Tablet 600 MG ORAL THREE TIMES A DAY, #30 TAB 0 Refills Prov: Nkechi Brown 02/22/19 Hydrocodone Bit/Acetaminophen 7.5-325* (NORCO 7.5-325*) 1 Each Tablet 1 TAB ORAL Q6H PRN for For Pain, #12 TAB 0 Refills Prov: Nkechi Brown 02/22/19 Patient Instructions: Toe Dislocation, [id number], Toe Fracture Additional Instructions: Take medications as directed. Follow up with an REHAB SERVICES AIDE in 3-5 days, even if your symptoms have resolved. --Please review list of primary care clinics, if you do not already have a primary care provider who can give you an Orthopedic Referral. Return sooner to ED if new symptoms occur, or current symptoms become worse. Do not drink alcohol, drive, or operate heavy machinery while taking Bayard as this may cause drowsiness. - Please note that this Emergency Department Report was dictated using [employer] machine operator technology software, occasionally this can lead to erroneous entry secondary to interpretation by the dictation equipment. Nkechi Brown Feb 22, 2019 17:26 Kenyon Ernandez MD February 24, 2019 21:08
[2019-02-22] MEDS ORDERED: NORCO 7.5-3251 EACH ORAL (18:16)
[2019-02-22] MEDS ORDERED: IBUPROFEN600 MG ORAL (18:16)
[2019-02-22 18:58] VITALS: BP 122/80
--- NOTE | 2019-02-23 10:17 | Diagnostic Imaging Report ---
Indication: Pain Technique: 3 views of the left toes Comparison: One hour earlier Findings: There is persistent lateral subluxation or dislocation of the fifth interphalangeal joint and a small fracture fragment lateral to the head of the proximal phalanx. No interim change in bony alignment. Hallux valgus and bunion formation again noted Impression: Unchanged right fifth proximal interphalangeal joint dislocation versus subluxation, and small associated chip or avulsion fracture, over one hour
== END 2019-02-22 19:00 | disposition home or self-care (01) ==
LOC: EMR 17:42
DX: S93.105A Unspecified dislocation of left toe(s), initial encounter (principal); S92.512A Displaced fracture of proximal phalanx of left lesser toe(s), initial encounter for closed fracture; M20.12 Hallux valgus (acquired), left foot; M21.612 Bunion of left foot; W22.03XA Walked into furniture, initial encounter; Y92.9 Unspecified place or not applicable
CPT/HCPCS: 28475; 73660; 99283; Z7502

== ENCOUNTER 2019-03-07 00:36 | Emergency (ER) | payer OTHER ==
[~2019-03-07] VITALS: Ht 165.1 cm; Wt 54.4 kg
[~2019-03-07 00:36] MED LIST changes: +NORCO 7.5-3251 EACH ORAL
--- NOTE | 2019-03-07 01:06 | NUR ---
ED Nurse Note: Pt states she might broke her L foot small toe a week ago. Pt is AO x 4times, VSS, on room air no distress. LAYA seen Pt at bedside.
--- NOTE | 2019-03-07 01:23 | Emergency Room Report ---
History of Present Illness General Chief Complaint: Lower Extremity Injury Source: Patient Present Illness HPI Seen 02/12 for toe dislocation. Refused to have reduction by me. Here as pain is increased. Swelling. Pain is rated 4/10, aching, worse when dependent. Not radiating. No fevers. No redness. The toe is deformed. On the encounter note, "heart pain" is listed, but patient denies this. Allergies: Coded Allergies: No Known Allergies (Unverified , 12/11/18) Patient History Past Medical History: see triage record Social History: Reports: smoking, drug use - cocaine/thc in the past Social History Narrative ambulated here Last Menstrual Period: Feb 27 2019 Now: No Reviewed Nursing Documentation: PMH: Agreed; PSxH: Agreed Nursing Documentation-PMH Past Medical History: No Stated History Hx Cerebrovascular Accident: No Review of Systems Constitutional: Reports: see HPI Cardiovascular: Reports: see HPI Musculoskeletal: Reports: see HPI Skin: Reports: see HPI Neurological: Reports: see HPI Physical Exam Vital Signs Date Time Temp Pulse Resp B/P (MAP) Pulse Ox O2 Delivery O2 Flow Rate FiO2 03/07/19 00:57 98.8 90 18 98 Room Air Sp02 EP Interpretation: reviewed, normal General Appearance: well appearing, no apparent distress Head: normocephalic, atraumatic Eyes: bilateral eye PERRL, bilateral eye fluoroscene uptake ENT: hearing grossly normal, normal voice Neck: full range of motion, supple Respiratory: no respiratory distress, speaking full sentences Cardiovascular #1: normal peripheral pulses Cardiovascular #2: 2+ dorsalis pedis (L) - good Capillary refill Gastrointestinal: normal inspection Musculoskeletal: gait/station normal, no calf tenderness, swelling - deformity of little toe L Neurologic: alert, oriented x3, motor strength/tone normal, sensory intact - distally, normal gait Psychiatric: mood/affect normal Skin: no rash, other - no erythema of toe Procedures Joint Reduction Joint Reduction : Consent: Verbal Joint Reduction Site: other - left little toe Procedural Sedation: No Reduction Attempts: One Pre-Procedure NV Exam: Yes Post-Procedure NV Exam: Yes - digital block but vasc normal Post Joint Reduction Film: joint not reduced Patient Tolerated: Poor - fighting with MD Complications: Other - not reduced and patient refuses to allow more local or attempt Medical Decision Making Diagnostic Impression: Primary Impression: Toe dislocation Qualified Codes: S93.105D - Unspecified dislocation of left toe(s), subsequent encounter ER Course Here post injury 02/12. Wants reduction now. Discussed the procedure. Reduction attempt and patient fighting. Good anesthesia (unable to feel toe) - but complaining of pain. Refuses to allow further attempts. Delio taped. Position good. Stable for outpatient observation and treatment. Told to follow up with curriculum development specialist or military cook soon as if this is not taken care of soon, it will be permanently deformed. Other X-Ray Diagnostic Results Other X-Ray Diagnostic Results : X-Ray ordered: L foot # of Views/Limited Vs Complete: 2 View Indication: Other EP Interpretation: Yes Interpretation: other - still dislocated - small fx still present Impression: Other Electronically Signed by: Electronically signed by Kenyon Ernandez MD Last Vital Signs Date Time Temp Pulse Resp B/P (MAP) Pulse Ox O2 Delivery O2 Flow Rate FiO2 03/07/19 02:53 98.1 83 18 129/88 98 Room Air Status: improved Disposition: HOME, SELF-CARE Condition: Improved Scripts Ibuprofen* (MOTRIN*) 600 Mg Tablet 600 MG ORAL Q6H PRN for For Pain, #20 TAB Prov: Kenyon Ernandez MD 03/07/19 Kenyon Ernandez MD March 07, 2019 01:23
[2019-03-07] MEDS ORDERED: IBUPROFEN600 MG ORAL (02:20)
--- NOTE | 2019-03-07 02:20 | NUR ---
ER DISCHARGE NOTE: Patient is cleared to be discharged per ERMD, pt is aox4, on room air, with stable vital signs. pt was given dc and prescription instructions, pt was able to verbalize understanding, pt id band removed without complications. pt is able to ambulate with steady gait. pt took all belongings.
[2019-03-07 02:53] VITALS: BP 129/88
--- NOTE | 2019-03-07 11:44 | Diagnostic Imaging Report ---
Indication: Postop film Comparison: 02/22/2019 Findings: 3 views of the left foot were obtained. There is a dislocation of the fifth PIP joint. Small fracture fragment also noted lateral to the dislocation. This is noted on the previous exam and unchanged. Hallux valgus deformity and bunion noted as well. IMPRESSION: Postop film. Uncertain what the nature of the surgery was. Correlate with the surgical history.
== END 2019-03-07 02:20 | disposition home or self-care (01) ==
LOC: EMR 01:20
DX: S93.105D Unspecified dislocation of left toe(s), subsequent encounter (principal); X58.XXXD Exposure to other specified factors, subsequent encounter; F17.200 Nicotine dependence, unspecified, uncomplicated
CPT/HCPCS: 28660; 73630; 99283; Z7502

== ENCOUNTER 2019-05-12 06:33 | Emergency (ER) | payer OTHER ==
[~2019-05-12] VITALS: Ht 165.1 cm; Wt 54.4 kg
[2019-05-12 06:40] VITALS: BP 130/93
--- NOTE | 2019-05-12 06:45 | NUR ---
ED Nurse Note: Patient came to ER via her bicyle. laceration to left foreaem area secondary to a glass piece slashed her forearm. C/o pain 9/10. patient is alert x4. bed is in lowest position. call light within reach. VSS
[2019-05-12] MEDS ORDERED: Tetanus/Diptheria/Pertussis IM ONE (07:00)
[2019-05-12] MEDS ORDERED: Lidocaine 1% Plain 30 ml INJ ONE (07:00)
--- NOTE | 2019-05-12 07:12 | NUR ---
HAND-OFF: Report given to ISABELLA Arce.
--- NOTE | 2019-05-12 07:22 | NUR ---
ED Nurse Note: ERMD suturing at bedside. pt is well tolerating.
[2019-05-12] MEDS ORDERED: BACITRACIN15 GM TOPIC (07:42)
[2019-05-12] MEDS ORDERED: Bacitracin Oint UD TOPIC ONE (07:45)
[2019-05-12 07:52] VITALS: BP 130/93
--- NOTE | 2019-05-12 07:52 | NUR ---
ER DISCHARGE NOTE: Patient is cleared to be discharged per ERMD after suturing on Lt arm, pt is aox4, on room air, with stable vital signs. pt was given dc and prescription instructions, and told to come back for follow up suture care. pt was able to verbalize understanding, pt id band removed. pt is able to ambulate with steady gait. pt took all belongings.
--- NOTE | 2019-05-12 08:10 | Emergency Room Report ---
History of Present Illness General Chief Complaint: Laceration Source: Patient Present Illness HPI 43-year-old female presents ED for evaluation. States that this morning a mirror broke and cut her left forearm. States there is a laceration to her left forearm. Tetanus unknown. Pain is 10 out of 10, sharp, nonradiating. Denies any other injuries. No other aggravating relieving factors. Denies any other associated symptoms Allergies: Coded Allergies: No Known Allergies (Unverified , 12/11/18) Patient History Past Medical History: none Past Surgical History: none Pertinent Family History: none Social History: Denies: smoking, alcohol use, drug use Last Menstrual Period: 03/2019 Now: No Immunizations: UTD Reviewed Nursing Documentation: PMH: Agreed; PSxH: Agreed Nursing Documentation-PMH Hx Cerebrovascular Accident: No Review of Systems All Other Systems: negative except mentioned in HPI Physical Exam Vital Signs Date Time Temp Pulse Resp B/P (MAP) Pulse Ox O2 Delivery O2 Flow Rate FiO2 05/12/19 06:37 98.1 86 18 135/93 (107) 97 Room Air Sp02 EP Interpretation: reviewed, normal General Appearance: no apparent distress, alert, GCS 15, non-toxic Head: normocephalic Eyes: bilateral eye normal inspection, bilateral eye PERRL ENT: normal ENT inspection Neck: normal inspection Respiratory: normal inspection Cardiovascular #1: normal inspection Gastrointestinal: normal inspection Rectal: deferred Genitourinary: no CVA tenderness Musculoskeletal: back normal, gait/station normal, normal range of motion, non- tender Neurologic: alert, oriented x3, responsive, motor strength/tone normal, sensory intact, speech normal Psychiatric: normal inspection Skin: no rash, laceration - 2cm laceation to volar aspect L forearm. subcutaneous fat exposed. no tendon or muscle involvement Lymphatic: normal inspection Procedures Laceration/Wound Repair Laceration/Wound Repair : Consent: Written Wound Location: upper extremity - L forearm Wound's Depth, Shape: linear Wound Explored: clean Betadine Prep?: Yes Anesthesia: 1% Lidocaine Wound Debrided: minimal Wound Repaired With: sutures Suture Size/Type: 4:0, proline Layer Closure?: No Sterile Dressing Applied?: Yes Splint Applied?: No Sling Applied?: No Patient Tolerated: Well Complications: None Medical Decision Making Diagnostic Impression: Primary Impression: Laceration ER Course Hospital Course 43 yo F presents with laceration L forearm Clinical course Patient placed on stretcher. After initial history and physical I ordered tetanus shot. wound irrigated. Anesthesia provided with lidocaine. Laceration repaired w/o complication. Dressing/bacitracin applied. Diagnosis - laceration Stable and discharged to home with prescription for bacitracin. wound Care instructions given. Followup with PMD in 7-10 days for suture removal. Return to ED if any signs of infection develop Last Vital Signs Date Time Temp Pulse Resp B/P (MAP) Pulse Ox O2 Delivery O2 Flow Rate FiO2 05/12/19 07:52 98.1 80 18 130/93 97 Room Air Status: improved Disposition: HOME, SELF-CARE Condition: Stable Scripts Bacitracin (Bacitracin) 28.4 Gm Oint...g. 1 APPLIC TOPIC THREE TIMES A DAY, #28.4 GM Prov: Drew Viramontes MD 05/12/19 Referrals: [facility],REFERRING (PCP) Cira Galvez [facility] Patient Instructions: Laceration Care, Adult Additional Instructions: return to ED in 7-10 days for suture removal Drew Viramontes MD May 12, 2019 08:10
== END 2019-05-12 07:54 | disposition home or self-care (01) ==
LOC: EMR 06:54
DX: S51.812A Laceration without foreign body of left forearm, initial encounter (principal); W25.XXXA Contact with sharp glass, initial encounter; Y92.9 Unspecified place or not applicable; Z23 Encounter for immunization
CPT/HCPCS: 12001; 90471; 90715; 99283; J2001; Z7502

== ENCOUNTER 2019-07-25 23:59 | Emergency (ER) | payer OTHER ==
[~2019-07-25] VITALS: Ht 165.1 cm; Wt 54.4 kg
[2019-07-26 00:15] VITALS: BP 152/103
[2019-07-26] MEDS ORDERED: Ketorolac 30mg Inj IV ONE (00:15)
--- NOTE | 2019-07-26 00:15 | Emergency Room Report ---
History of Present Illness General Chief Complaint: Chest Pain Source: Patient Present Illness HPI Is a 44-year-old female with no past medical history. She presents with chief complaint of chest pain. This been ongoing for weeks. Constant. Pain is mostly in the left chest area and shoulder area. Worse with movement. Worse with palpation. Pain is 8 out of 10. She says she saw her primary care doctor who recommended she go to the hospital. She decided tonight to call 911. Denies any fever chills but denies any shortness of breath. Denies any radiation of the pain. No exertional component. Worse with movement and palpation. Admits to using cocaine 2 days ago. Allergies: Coded Allergies: No Known Allergies (Unverified , 12/11/18) Patient History Past Medical History: see triage record, old chart reviewed Past Surgical History: none Pertinent Family History: none Social History: Reports: smoking, drug use Last Menstrual Period: 06/2019 Now: No Immunizations: other Reviewed Nursing Documentation: PMH: Agreed; PSxH: Agreed Nursing Documentation-PMH Hx Hypertension: Yes History Of Psychiatric Problem: Yes Hx Cerebrovascular Accident: No Review of Systems Eye: Denies: eye pain, blurred vision ENT: Denies: ear pain, nose congestion, throat swelling Respiratory: Denies: cough, shortness of breath Cardiovascular: Reports: chest pain; Denies: palpitations Gastrointestinal: Denies: abdominal pain, diarrhea, nausea, vomiting Musculoskeletal: Denies: back pain, joint pain Skin: Denies: rash Neurological: Denies: headache, numbness Endocrine: Denies: increased thirst, increased urine Hematologic/Lymphatic: Denies: easy bruising All Other Systems: negative except mentioned in HPI Physical Exam Vital Signs Date Time Temp Pulse Resp B/P (MAP) Pulse Ox O2 Delivery O2 Flow Rate FiO2 07/26/19 00:01 98.2 90 16 152/103 (119) 99 Vitals with high blood pressure Sp02 EP Interpretation: reviewed, normal General Appearance: well appearing, no apparent distress, alert Head: normocephalic, atraumatic Eyes: bilateral eye PERRL, bilateral eye EOMI ENT: hearing grossly normal, normal pharynx Neck: full range of motion, supple, no meningismus Respiratory: lungs clear, normal breath sounds, other - Reproducible chest pain with palpation on left side. Cardiovascular #1: regular rate, rhythm, no murmur Gastrointestinal: normal bowel sounds, non tender, no mass, no organomegaly, no bruit, non-distended Musculoskeletal: back normal, gait/station normal, normal range of motion Psychiatric: mood/affect normal Medical Decision Making Diagnostic Impression: Primary Impression: Musculoskeletal chest pain Additional Impression: Cocaine abuse ER Course This patient presents with chest pain that has been ongoing for weeks. No evidence of ACS, PE, dissection to name a few. No evidence of pneumonia on chest x-ray. Most likely musculoskeletal since it is reproducible. Will discharge home. EKG Diagnostic Results Rate: normal Rhythm: NSR ST Segments: no acute changes Rhythm Strip Diag. Results EP Interpretation: yes Rate: 75 Rhythm: NSR, no PVC's, no ectopy Chest X-Ray Diagnostic Results Chest X-Ray Diagnostic Results : Chest X-Ray Ordered: Yes # of Views/Limited/Complete: 1 View Indication: Chest Pain EP Interpretation: Yes Interpretation: no consolidation, no effusion, no pneumothorax, no acute cardiopulmonary disease Impression: No acute disease Electronically Signed by: Sanju Sullivan MD Last Vital Signs Date Time Temp Pulse Resp B/P (MAP) Pulse Ox O2 Delivery O2 Flow Rate FiO2 07/26/19 00:01 98.2 90 16 152/103 (119) 99 Status: improved Disposition: HOME, SELF-CARE Condition: Stable Scripts Ibuprofen* (MOTRIN*) 600 Mg Tablet 600 MG ORAL THREE TIMES A DAY, #30 TAB 0 Refills Prov: Sanju Sullivan MD 07/26/19 Referrals: [facility],REFERRING (PCP) Patient Instructions: Nonspecific Chest Pain Additional Instructions: Follow-up with your doctor in 7 days. Abstain from drugs and alcohol. Return if symptoms worsen. Sanju Sullivan MD Jul 26, 2019 00:15
--- NOTE | 2019-07-26 00:15 | NUR ---
ED Nurse Note: Patient was BIBA from home due to CP. Stated that has this more than 3 weeks. AAO x4, VSS at this time, skin is dry warm to touch. Patient presented with non-labored breathing, O2 sat 100% on RA.
[2019-07-26] MEDS ORDERED: IBUPROFEN600 MG ORAL (00:48)
[2019-07-26 01:03] VITALS: BP 152/103
--- NOTE | 2019-07-26 01:06 | NUR ---
ER DISCHARGE NOTE: Patient is cleared to be discharged per ERMD, pt is aox4, on room air, with stable vital signs. pt was given dc and prescription instructions, pt was able to verbalize understanding, pt id band and iv site removed without complications. pt is able to ambulate with steady gait. pt took all belongings.
--- NOTE | 2019-07-26 11:27 | Diagnostic Imaging Report ---
Indication: Chest pain Technique: One view of the chest Comparison: none Findings: Lungs and pleural spaces are clear. Heart size is normal. Lungs appear somewhat hyperinflated Impression: Possible pulmonary hyperinflation. Correlate with any clinical history of asthma or COPD No acute process otherwise
== END 2019-07-26 00:56 | disposition home or self-care (01) ==
LOC: EDUNIT# 23:59 → EDBD 23:59 → EMR 07-26 00:11
DX: R07.89 Other chest pain (principal); F14.10 Cocaine abuse, uncomplicated; I10 Essential (primary) hypertension; F17.200 Nicotine dependence, unspecified, uncomplicated
CPT/HCPCS: 71045; 84484; 93005; 96374; J1885; Z7502; 99284

== ENCOUNTER 2019-09-14 01:49 | Emergency (ER) | payer OTHER ==
[~2019-09-14] VITALS: Ht 165.1 cm; Wt 54.4 kg
[2019-09-14] MEDS ORDERED: NKM (01:58)
[2019-09-14 02:09] VITALS: BP 128/94
[2019-09-14 02:29] LABS: BILIRUBIN, URINE NEGATIVE (NEGATIVE); GLUCOSE, URINE (UA) NEGATIVE (NEGATIVE); KETONES,URINE NEGATIVE (NEGATIVE); LEUKOCYTE ESTERASE ,URINE 2+ (NEGATIVE); NITRITE,URINE NEGATIVE (NEGATIVE); PH,URINE 5 (4.5-8.0); PROTEIN,URINE NEGATIVE (NEGATIVE); UROBILINOGEN,URINE 1 MG/DL (0.0-1.0)
--- NOTE | 2019-09-14 02:31 | Emergency Room Report ---
History of Present Illness General Chief Complaint: Female Urogenital Problems Source: Patient Present Illness HPI Disclaimer: Please note that this report is being documented using DRAGON technology. This can lead to erroneous entry secondary to incorrect interpretation by the dictating instrument. HPI: 44-year-old female presents for dysuria and vaginal discharge. Symptoms present 3 to 4 days. Notes urinary frequency, urgency and dysuria. Denies hematuria. Notes a thick brownish discharge. Concerned she may have a yeast infection which she has had in the past. Used a Monistat vaginal insert few days ago but stated that she could not complete the therapy because of significant burning. Denies fever, chills, vomiting, diarrhea or other systemic signs of infection. States she gets urinary tract infections and yeast infections every now and then. She believes this is more of a yeast infection. PMH: Denies PSH: Denies Allergies: Denies medication allergies Social Hx: Denies drug or alcohol abuse Allergies: Coded Allergies: No Known Allergies (Unverified , 12/11/18) Patient History Last Menstrual Period: 08/09/19 Nursing Documentation-PMH Past Medical History: No Stated History Hx Cerebrovascular Accident: No Review of Systems All Other Systems: negative except mentioned in HPI Physical Exam Vital Signs Date Time Temp Pulse Resp B/P (MAP) Pulse Ox O2 Delivery O2 Flow Rate FiO2 09/14/19 01:55 99.0 90 18 128/94 (105) 97 Room Air General: Awake and alert, no acute distress HEENT: NC/AT. EOMI. Resp: Normal work of breathing Abdomen: Soft, nondistended. Lower pelvic tenderness in the right lower quadrant, suprapubic and left lower quadrant. No rebound. No masses. No CVA tenderness. : Speculum exam shows a thick, clumpy discharge. No bleeding or other lesions appreciated. No cervical motion tenderness. Skin: Intact. No abrasions, laceration or rash over the exposed skin MSK: Normal tone and bulk. Moving all extremities. No obvious deformity. Neuro: Awake and alert. Mentating appropriately Medical Decision Making Diagnostic Impression: Primary Impression: Vulvovaginal candidiasis ER Course 44-year-old female presents for evaluation of dysuria and thick vaginal discharge. Urinalysis shows leukocytosis but few bacteria and few epithelial cells. There are 2+ leukocyte esterase though this is not a clear urinary tract infection. Given the discharge the patient is complaining about a pelvic exam was completed and a wet mount sent. Patient is refusing to stay for the results however clinically I have concern for vulvovaginal candidiasis. Patient be treated with fluconazole in the emergency department and then discharged home to follow-up with her APPEALS ASSISTANT/PMD. Discussed need for follow-up and to return to the emergency department with any new or worsening symptoms. She understands and agrees with this treatment plan. Last Vital Signs Date Time Temp Pulse Resp B/P (MAP) Pulse Ox O2 Delivery O2 Flow Rate FiO2 09/14/19 02:09 99.0 18 128/94 97 Room Air 09/14/19 01:55 90 Disposition: HOME, SELF-CARE Condition: Stable Anders Valadez MD Sep 14, 2019 02:31
[2019-09-14 02:42] LABS: APPEARANCE,URINE SLIGHTLY CLOUDY; COLOR,URINE YELLOW
[2019-09-14] MEDS ORDERED: Fluconazole 150mg tab ORAL ONE (06:00)
[2019-09-14 06:12] VITALS: BP 128/94
== END 2019-09-14 06:13 | disposition home or self-care (01) ==
LOC: EMR 02:08
DX: B37.9 Candidiasis, unspecified (principal)
CPT/HCPCS: 81003; 81025; 87086; 87210; Z7502; 99283

== ENCOUNTER 2019-11-25 03:18 | Emergency (ER) | payer OTHER ==
[~2019-11-25] VITALS: Ht 165.1 cm; Wt 54.4 kg
--- NOTE | 2019-11-25 03:20 | NUR ---
ED Nurse Note: Pt ambulated to ED from home c/o 5/10 pain and tenderness on posterior R knee, bug bite noted, no drainage, no fever. VSS
[2019-11-25 03:30] VITALS: BP 128/86
[2019-11-25] MEDS ORDERED: Bacitracin Oint UD TOPIC ONE (03:30)
[2019-11-25] MEDS ORDERED: Bactrim-DS 1 tab ORAL ONE (03:30)
[2019-11-25] MEDS ORDERED: MUPIROCIN22 GM TOPIC (03:32)
[2019-11-25] MEDS ORDERED: BACTRIM DS TAB1 EAC1 ORAL (03:32)
--- NOTE | 2019-11-25 03:33 | Emergency Room Report ---
History of Present Illness General Chief Complaint: Skin Rash/Abscess Source: Patient Present Illness [facility] This is a 44-year-old female with a history of cocaine abuse. She presents with chief complaint of spider bite to the right knee. She noticed it today. Tender to palpation. No drainage. Any spider. Pain is 9 out of 10. Worse with movement and palpation. Denies any other complaint. No drainage. No redness. Allergies: Coded Allergies: No Known Allergies (Unverified , 12/11/18) Patient History Past Medical History: see triage record, old chart reviewed Past Surgical History: none Pertinent Family History: none Social History: Reports: smoking, drug use Last Menstrual Period: 10/2019 Now: No Immunizations: other Reviewed Nursing Documentation: PMH: Agreed; PSxH: Agreed Nursing Documentation-PMH Hx Hypertension: Yes Hx Cerebrovascular Accident: No Review of Systems Eye: Denies: eye pain, blurred vision ENT: Denies: ear pain, nose congestion, throat swelling Respiratory: Denies: cough, shortness of breath Cardiovascular: Denies: chest pain, palpitations Gastrointestinal: Denies: abdominal pain, diarrhea, nausea, vomiting Musculoskeletal: Denies: back pain, joint pain Skin: Denies: rash Neurological: Denies: headache, numbness Endocrine: Denies: increased thirst, increased urine Hematologic/Lymphatic: Denies: easy bruising All Other Systems: negative except mentioned in HPI Physical Exam Vital Signs Date Time Temp Pulse Resp B/P (MAP) Pulse Ox O2 Delivery O2 Flow Rate FiO2 11/25/19 03:21 97.9 92 16 128/86 (100) 98 Room Air Vitals normal Sp02 EP Interpretation: reviewed, normal General Appearance: well appearing, no apparent distress, alert Head: normocephalic, atraumatic Eyes: bilateral eye PERRL, bilateral eye EOMI ENT: hearing grossly normal, normal pharynx Neck: full range of motion, supple, no meningismus Respiratory: chest non-tender, lungs clear, normal breath sounds Cardiovascular #1: regular rate, rhythm, no murmur Gastrointestinal: normal bowel sounds, non tender, no mass, no organomegaly, no bruit, non-distended Musculoskeletal: back normal, normal range of motion, gait/station normal, tender - 1 cm indurated area in the right popliteal fossa. There is a central 1 mm ulceration. No drainage. No redness. Tender to palpation. No fluctuant. Psychiatric: mood/affect normal Medical Decision Making Diagnostic Impression: Primary Impression: Abscess ER Course Patient presents with a small superficial abscess to the right popliteal fossa. No evidence of any spider bite. Nothing to be I&D. Will discharge home. Last Vital Signs Date Time Temp Pulse Resp B/P (MAP) Pulse Ox O2 Delivery O2 Flow Rate FiO2 11/25/19 03:21 97.9 92 16 128/86 (100) 98 Room Air Status: improved Disposition: HOME, SELF-CARE Condition: Stable Scripts Mupirocin* (MUPIROCIN*) 22 Gm Oint...g. 1 APPLIC TOPIC THREE TIMES A DAY, #22 GM Prov: Sanju Sullivan MD 11/25/19 Trimethoprim/Sulfamethoxazole 160/800* (BACTRIM DS TABLET*) 1 Each Tablet 1 TAB ORAL Q12H, #14 TAB 0 Refills Prov: Sanju Sullivan MD 11/25/19 Patient Instructions: Abscess Additional Instructions: Keep wound clean. Clean first with hydroperoxide and apply antibiotic ointment. Take your antibiotics. Follow-up with your doctor in 7 days for recheck. Return if worse. Sanju Sullivan MD Nov 25, 2019 03:33
[2019-11-25 03:40] VITALS: BP 128/86
--- NOTE | 2019-11-25 03:40 | NUR ---
ER DISCHARGE NOTE: Patient is cleared to be discharged per ERMD, pt is aox4, on room air, with stable vital signs. pt was given dc and prescription instructions, pt was able to verbalize understanding, pt id band removed. pt is able to ambulate with steady gait. pt took all belongings.
== END 2019-11-25 03:40 | disposition home or self-care (01) ==
LOC: EMR 03:36
DX: L02.415 Cutaneous abscess of right lower limb (principal); I10 Essential (primary) hypertension; F17.200 Nicotine dependence, unspecified, uncomplicated; F19.90 Other psychoactive substance use, unspecified, uncomplicated
CPT/HCPCS: 99282

== ENCOUNTER 2019-12-28 17:20 | Emergency (ER) | payer OTHER ==
[~2019-12-28] VITALS: Ht 157.5 cm; Wt 56.7 kg
[~2019-12-28 17:20] MED LIST changes: +MUPIROCIN22 GM TOPIC
--- NOTE | 2019-12-28 17:20 | NUR ---
ED Nurse Note: Pt BIBA from home d/t post ictal seizure x 1 today with 40 secs duration. Per report pt had an oral trauma, noted oral mucosa with non-profused bleeding; no head trauma/injury. Pt is AOx3 noted with restlessness. Placed on bed and gown; VSS, on RA. Will continue to monitor. Son at bedside.
[2019-12-28 17:25] VITALS: BP 159/99
[2019-12-28 18:30] LABS: BASOPHILS % (AUTO) 2.1 % (0.0-2.0); EOSINOPHILS % (AUTO) 0.4 % (0.0-3.0); HEMATOCRIT 39.1 % (37.0-47.0); HEMOGLOBIN 12.8 G/DL (12.0-16.0); LYMPHOCYTES % (AUTO) 33.7 % (20.0-45.0); MEAN CORPUSCULAR VOLUME 97 FL (80-99); MONOCYTES % (AUTO) 9.5 % (1.0-10.0); NEUTROPHILS % (AUTO) 54.2 % (45.0-75.0); PLATELET COUNT 308 K/UL (150-450); RED BLOOD COUNT 4.03 M/UL (4.20-5.40); RED CELL DISTRIBUTION WIDTH 12.3 % (11.6-14.8); WHITE BLOOD COUNT 4.5 K/UL (4.8-10.8)
[2019-12-28 18:36] LABS: ANION GAP 11 mmol/L (5-15); BLOOD UREA NITROGEN 12 mg/dL (7-18); CALCIUM 8.9 MG/DL (8.5-10.1); CARBON DIOXIDE 23 MMOL/L (21-32); CHLORIDE 104 MMOL/L (98-107); CREATININE 0.8 MG/DL (0.55-1.30); POTASSIUM 4.1 MMOL/L (3.5-5.1); SODIUM 138 MMOL/L (136-145)
[2019-12-28 18:40] LABS: ALANINE AMINOTRANSFERASE 15 U/L (12-78); ALBUMIN 3.3 G/DL (3.4-5.0); ALBUMIN/GLOBULIN RATIO 0.9 (1.0-2.7); ALKALINE PHOSPHATASE 54 U/L (46-116); ASPARTATE AMINO TRANSFERASE 13 U/L (15-37); BILIRUBIN,TOTAL 0.2 MG/DL (0.2-1.0)
--- NOTE | 2019-12-28 18:44 | Diagnostic Imaging Report ---
Indication: Headache Technique: Contiguous 5 mm thick transaxial imaging of the head obtained in a Siemens Sensation [address] scanner. Soft tissue and bone windows generated. Automatic Exposure Control was utilized. Total Dose length Product (DLP): 998.2mGycm CT Dose Index Volume (CTDIvol): 53.4 mGy Comparison: none Findings: The size and configuration of the cortical sulci, basal cisterns, and ventricles are within normal limits for age. There is an ossified meningioma at the convexity of the right frontal lobe measuring about 1.1 x 0.7 cm. There is no mass effect, midline shift, or edema identified. There is no evidence of acute hemorrhage or abnormal intra-axial or extra-axial fluid collections. The bones and soft tissues are unremarkable. Impression: No mass effect, edema or acute bleed. Ossified meningioma right frontal region. The CT scanner at [facility] is accredited by the [employer] and the scans are performed using dose optimization techniques as appropriate to a performed exam including Automatic Exposure control.
--- NOTE | 2019-12-28 19:12 | NUR ---
HAND-OFF: Report given to Jessica MASON.
--- NOTE | 2019-12-28 19:13 | NUR ---
ED Nurse Note: Received report from ISABELLA Ayala. Reassessed patient, patient resting in bed, no acute distress.
[2019-12-28 19:20] VITALS: BP 153/87
--- NOTE | 2019-12-28 19:30 | NUR ---
ED Nurse Note: Urine collected and sent to lab.
--- NOTE | 2019-12-28 19:50 | NUR ---
ED Nurse Note: ERMD at bedside.
[2019-12-28 20:21] LABS: APPEARANCE,URINE CLEAR; BILIRUBIN, URINE NEGATIVE (NEGATIVE); COLOR,URINE PALE YELLOW; GLUCOSE, URINE (UA) NEGATIVE (NEGATIVE); KETONES,URINE NEGATIVE (NEGATIVE); LEUKOCYTE ESTERASE ,URINE 1+ (NEGATIVE); NITRITE,URINE NEGATIVE (NEGATIVE); PH,URINE 7 (4.5-8.0); PROTEIN,URINE 1+ (NEGATIVE); UROBILINOGEN,URINE NORMAL MG/DL (0.0-1.0)
--- NOTE | 2019-12-28 21:06 | NUR ---
made contact with patient's son [phone]. informed that the mom is ready to be discharged
--- NOTE | 2019-12-28 21:33 | NUR ---
ER DISCHARGE NOTE: Patient is cleared to be discharged per ERMD, pt is aox4, on room air, with stable vital signs. pt was given dc instructions, pt was able to verbalize understanding, pt id band and bilateral iv sites removed intact without complications. pt is able to ambulate with steady gait. pt took all belongings. pt discharged with family member Ashok. pt stable upon discharge.
[2019-12-28 21:40] VITALS: BP 154/75
[2020-01-01] MEDS ORDERED: NITROFURANTOIN100 M2 ORAL (13:09)
--- NOTE | 2020-01-01 13:14 | Emergency Room Report ---
Physical Exam Vital Signs Date Time Temp Pulse Resp B/P (MAP) Pulse Ox O2 Delivery O2 Flow Rate FiO2 12/28/19 17:17 98.4 107 17 159/99 (119) 99 Room Air Medical Decision Making Diagnostic Impression: Primary Impression: Seizure disorder ER Course Urine culture positive for gram-negative rods. Prescription called into [facility] pharmacy. Macrobid for 1 week. Last Vital Signs Date Time Temp Pulse Resp B/P (MAP) Pulse Ox O2 Delivery O2 Flow Rate FiO2 12/28/19 21:40 98.2 69 18 154/75 99 Room Air Disposition: HOME, SELF-CARE Condition: Stable Scripts Nitrofurantoin Monohyd/M-Cryst* (MACROBID 100 MG*) 100 Mg Capsule 100 MG ORAL EVERY 12 HOURS, #14 CAP Prov: Carloz Easley M.D. 01/01/20 Referrals: [facility],REFERRING (PCP) Cira Galvez [facility] Patient Instructions: Seizure, Adult Carloz Easley M.D. Jan 01, 2020 13:14
--- NOTE | 2020-01-03 13:16 | Emergency Room Report ---
History of Present Illness General Chief Complaint: Seizure Source: Patient, Family Member, EMS Present Illness HPI 44-year-old female presents ED status post seizure. Brought in by EMS from home. Had seizure on couch. Occurred today. Witnessed by family. Unclear whether patient fell. 1 prior history of seizure. Is not on seizure meds. Denies alcohol or drug use. Denies headache. Denies chest pain or shortness of breath. Denies fevers or chills. Denies neck stiffness. No other aggravating relieving factors. Denies any other associated symptoms Allergies: Coded Allergies: No Known Allergies (Unverified , 12/11/18) Patient History Past Medical History: HTN, seizures Past Surgical History: none Pertinent Family History: none Social History: Reports: smoking; Denies: alcohol use, drug use Now: No Immunizations: UTD Reviewed Nursing Documentation: PMH: Agreed; PSxH: Agreed Nursing Documentation-PMH Past Medical History: No History, Except For Hx Hypertension: Yes Hx Cerebrovascular Accident: No Hx Seizures: Yes Review of Systems All Other Systems: negative except mentioned in HPI Physical Exam Sp02 EP Interpretation: reviewed, normal General Appearance: no apparent distress, alert, GCS 15, non-toxic Head: normocephalic, atraumatic Eyes: bilateral eye normal inspection, bilateral eye PERRL ENT: hearing grossly normal, normal pharynx, no angioedema, normal voice Neck: full range of motion, supple/symm/no masses Respiratory: chest non-tender, lungs clear, normal breath sounds, speaking full sentences Cardiovascular #1: regular rate, rhythm, no edema Cardiovascular #2: 2+ carotid (R), 2+ carotid (L), 2+ radial (R), 2+ radial (L) , 2+ dorsalis pedis (R), 2+ dorsalis pedis (L) Gastrointestinal: normal bowel sounds, non tender, soft, non-distended, no guarding, no rebound Rectal: deferred Genitourinary: normal inspection, no CVA tenderness Musculoskeletal: back normal, normal range of motion, gait/station normal, non- tender Neurologic: alert, motor strength/tone normal, oriented x3, sensory intact, responsive, speech normal Psychiatric: judgement/insight normal, memory normal, mood/affect normal, no suicidal/homicidal ideation Reflexes: 3+ bicep (R), 3+ bicep (L), 3+ tricep (R), 3+ tricep (L), 3+ knee (R) , 3+ knee (L) Lymphatic: no adenopathy Medical Decision Making Diagnostic Impression: Primary Impression: Seizure disorder Additional Impression: Substance abuse ER Course Hospital Course 44-year-old F presents to ED status post seizure Differential diagnosis includes- breakthrough seizure, alcohol abuse, noncompliance with medication Clinical course Patient placed on stretcher. Initial history and physical I ordered labs, IV fluids, EKG, CT brain Labs-electrolytes okay, no leukocytosis, hemoglobin/hematocrit stable. Drug screen positive for multiple substances EKG - NSR, no acute ischemic changes interpreted by me CT Brain ok I discussed findings with patient. More awake alert oriented x3. No focal deficits. Observed on equipment monitor phototypesetting with stable vitals. No seizure activity. Family is at bedside and can take patient home. Safe for discharge for close outpatient follow-up. I will provide referrals Diagnosis - substance abuse, seizure disorder stable and discharged to home. Followup with PMD. Return to ED if symptoms recur or worsen Labs Test 12/28/19 18:13 12/28/19 19:34 White Blood Count 4.5 K/UL (4.8-10.8) Red Blood Count 4.03 M/UL (4.20-5.40) Hemoglobin 12.8 G/DL (12.0-16.0) Hematocrit 39.1 % (37.0-47.0) Mean Corpuscular Volume 97 FL (80-99) Mean Corpuscular Hemoglobin 31.7 PG (27.0-31.0) Mean Corpuscular Hemoglobin Concent 32.7 G/DL (32.0-36.0) Red Cell Distribution Width 12.3 % (11.6-14.8) Platelet Count 308 K/UL (150-450) Mean Platelet Volume 6.1 FL (6.5-10.1) Neutrophils (%) (Auto) 54.2 % (45.0-75.0) Lymphocytes (%) (Auto) 33.7 % (20.0-45.0) Monocytes (%) (Auto) 9.5 % (1.0-10.0) Eosinophils (%) (Auto) 0.4 % (0.0-3.0) Basophils (%) (Auto) 2.1 % (0.0-2.0) Sodium Level 138 MMOL/L (136-145) Potassium Level 4.1 MMOL/L (3.5-5.1) Chloride Level 104 MMOL/L (98-107) Carbon Dioxide Level 23 MMOL/L (21-32) Anion Gap 11 mmol/L (5-15) Blood Urea Nitrogen 12 mg/dL (7-18) Creatinine 0.8 MG/DL (0.55-1.30) Estimat Glomerular Filtration Rate > 60 mL/min (>60) Glucose Level 93 MG/DL (74-106) Calcium Level 8.9 MG/DL (8.5-10.1) Total Bilirubin 0.2 MG/DL (0.2-1.0) Aspartate Amino Transf (AST/SGOT) 13 U/L (15-37) Alanine Aminotransferase (ALT/SGPT) 15 U/L (12-78) Alkaline Phosphatase 54 U/L (46-116) Total Protein 7.1 G/DL (6.4-8.2) Albumin 3.3 G/DL (3.4-5.0) Globulin 3.8 g/dL Albumin/Globulin Ratio 0.9 (1.0-2.7) Salicylates Level 2.9 ug/mL (2.8-20) Acetaminophen Level < 2 MCG/ML (10-30) Phenytoin (Dilantin) Level < 0.5 ug/mL (10-20) Valproic Acid (Depakene) Level < 3 MCG/ML (50-100) Carbamazepine (Tegretol) Level < 0.5 ug/mL (4.0-12.0) Serum Alcohol < 3 mg/dL Urine Color Pale yellow Urine Appearance Clear Urine pH 7 (4.5-8.0) Urine Specific [place] 1.010 (1.005-1.035) Urine Protein 1+ (NEGATIVE) Urine Glucose (UA) Negative (NEGATIVE) Urine Ketones Negative (NEGATIVE) Urine Blood 1+ (NEGATIVE) Urine Nitrite Negative (NEGATIVE) Urine Bilirubin Negative (NEGATIVE) Urine Urobilinogen Normal MG/DL (0.0-1.0) Urine Leukocyte Esterase 1+ (NEGATIVE) Urine RBC 2-4 /HPF (0 - 2) Urine WBC 10-15 /HPF (0 - 2) Urine Squamous Epithelial Cells Few /LPF (NONE/OCC) Urine Bacteria Moderate /HPF (NONE) Urine HCG, Qualitative Negative (NEGATIVE) Urine Opiates Screen Negative (NEGATIVE) Urine Barbiturates Screen Negative (NEGATIVE) Phencyclidine (PCP) Screen Negative (NEGATIVE) Urine Amphetamines Screen Negative (NEGATIVE) Urine Benzodiazepines Screen Negative (NEGATIVE) Urine Cocaine Screen Positive (NEGATIVE) Urine Marijuana (THC) Screen Positive (NEGATIVE) EKG Diagnostic Results Rate: normal Rhythm: NSR ST Segments: no acute changes ASA given to the pt in ED: No Rhythm Strip Diag. Results EP Interpretation: yes Rhythm: NSR, no PVC's, no ectopy CT/MRI/US Diagnostic Results CT/MRI/US Diagnostic Results : Imaging Test Ordered: CT Head Impression Findings: The size and configuration of the cortical sulci, basal cisterns, and ventricles are within normal limits for age. There is an ossified meningioma at the convexity of the right frontal lobe measuring about 1.1 x 0.7 cm. There is no mass effect, midline shift, or edema identified. There is no evidence of acute hemorrhage or abnormal intra-axial or extra-axial fluid collections. The bones and soft tissues are unremarkable. Status: improved Disposition: HOME, SELF-CARE Condition: Stable Scripts Nitrofurantoin Monohyd/M-Cryst* (MACROBID 100 MG*) 100 Mg Capsule 100 MG ORAL EVERY 12 HOURS, #14 CAP Prov: Carloz Easley M.D. 01/01/20 Referrals: [facility],REFERRING (PCP) Cira Galvez Comp. [facility] Patient Instructions: Seizure, Adult Drew Viramontes MD Jan 03, 2020 13:16
== END 2019-12-28 21:40 | disposition home or self-care (01) ==
LOC: EDBD 17:20 → EMR 17:39
DX: G40.909 Epilepsy, unspecified, not intractable, without status epilepticus (principal)
CPT/HCPCS: 36415; 70450; 80053; 80156; 80164; 80184; 80185; 80188; 80307; 81003; 81025; 85025; 87086; 87181; 93005; 96360; G0480; G0481; J7030; Z7502; 99284

== ENCOUNTER → 2020-12-19 | Emergency (ER) | payer OTHER ==
[~2020-12-19] VITALS: Ht 167.6 cm; Wt 54.4 kg
[2020-12-19 14:05] VITALS: BP 118/68
--- NOTE | 2020-12-19 15:54 | NUR ---
ED Nurse Note:pt not in ed when md going to eval pt. apparent elopement.
--- NOTE | 2020-12-19 16:12 | Emergency Room Report ---
History of Present Illness General Chief Complaint: Puncture Wound Present Illness HPI Patient gave hx to RN. She had left before I could evaluate her. Review of chart reveals tetanus not up to date. However, it is documented she got tetanus . Allergies: Coded Allergies: No Known Allergies (Unverified , 12/11/18) COVID-19 Screening Contact w/high risk pt: No Experienced COVID-19 symptoms?: No COVID-19 Testing performed LENS GRINDER AND POLISHER: No Patient History Past Medical History: see triage record Social History: Reports: smoking, drug use - cocaine/thc Social History Narrative lives in [place] Now: No Reviewed Nursing Documentation: PMH: Agreed; PSxH: Agreed Nursing Documentation-PMH Hx Hypertension: Yes Hx Cerebrovascular Accident: No Hx Seizures: Yes Physical Exam Vital Signs Date Time Temp Pulse Resp B/P (MAP) Pulse Ox O2 Delivery O2 Flow Rate FiO2 12/19/20 14:05 98.2 97 18 118/68 (85) 96 Room Air Sp02 EP Interpretation: reviewed, normal Medical Decision Making Diagnostic Impression: Primary Impression: Patient left without being seen Additional Impression: Puncture wound ER Course Patient called [id number] She states RN told her "there is no glass in there". She feels OK to take care of the wound herself. Told to return if needed. Last Vital Signs Date Time Temp Pulse Resp B/P (MAP) Pulse Ox O2 Delivery O2 Flow Rate FiO2 12/19/20 14:05 98.2 97 18 118/68 (85) 96 Room Air Status: unchanged Disposition: LEFT W/OUT BEING SEEN Condition: Unknown Referrals: [facility],REFERRING (PCP) Kenyon Ernandez MD Dec 19, 2020 16:12
== END | disposition left against medical advice (07) ==
LOC: EMR 14:06
DX: Z53.21 Procedure and treatment not carried out due to patient leaving prior to being seen by health care provider (principal); F17.200 Nicotine dependence, unspecified, uncomplicated; I10 Essential (primary) hypertension; G40.909 Epilepsy, unspecified, not intractable, without status epilepticus